=== PATIENT | male | born 2000 | race Caucasian/White ===

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

== ENCOUNTER 2024-09-07 19:48 | Emergency (ER) | payer SELFPAY ==
[2024-09-07 19:50] VITALS: BP 123/70; PULSE 94; RESP 16; TEMP 36.2; O2SAT 99; BMI 19.4
--- NOTE | 2024-09-07 20:39 | EDS_ITS ---
HPI <MIRIAM Galindo - Last Filed: 09/07/24 20:49> History of Present Illness Chief Complaint: Bite Narrative Narrative: Patient presenting today with concerns for a tick bite. He was in the shower yesterday when he noticed a tick on his left medial thigh. He is not sure how long the tick was there but thinks likely it was more than 24 hours. The ticks head was embedded in his skin but did not appear engorged. He was able to pull it out. He has no other acute complaints, he is healthy otherwise. PFSH <MIRIAM Galindo - Last Filed: 09/07/24 20:49> [facility] Home Medications ?Medication ?Instructions ?Recorded ?Last Taken ?Type NK 11/05/19 Unknown History Allergy/AdvReac Type Severity Reaction Status Date / Time No Known Allergies Allergy Verified 09/07/24 19:50 Social History Smoking Status: Never smoker ROS <MIRIAM Galindo - Last Filed: 09/07/24 20:49> ROS ED Constitutional Constitutional ED: Denies chills or fever(s) Cardiovascular Cardiovascular: Denies chest pain Respiratory/Chest Respiratory/Chest: Denies cough or dyspnea Gastrointestinal Gastrointestinal: Denies abdominal pain, nausea or vomiting Musculoskeletal Musculoskeletal: Denies arthralgias or myalgias Integumentary Reports other Details: Tick bite left medial thigh Neurologic Neurologic: Denies weakness EXAM <MIRIAM Galindo Last Filed: 09/07/24 20:49> Physical Exam Const Vital Signs: 09/07/24 19:50 09/07/24 21:04 Temperature 97.2 F L 97.9 F Temperature Source Temporal Pulse Rate 94 96 Respiratory Rate 16 18 Blood Pressure 123/70 H 124/85 H Blood Pressure Mean 87 98 Pulse Ox 99 99 Oxygen Delivery Method Room Air Positive well nourished, well developed and no apparent distress General Appearance ED: well developed HEENT Reports normocephalic and head/scalp atraumatic Mouth ED: Yes moist mucous membranes normal Eyes PERRL and EOMs intact bilaterally Neck full ROM and supple Chest Wall inspection of chest normal Resp normal respiratory effort and clear to auscultation bilaterally Cardio regular rate and regular rhythm GI soft to palpation, non-tender, non-distended and no masses Back/Spine normal ROM and normal to inspection Extremity full ROM Extremity Narrative: Small area of erythema to the left medial thigh where the tick was, no surroundi ng warmth or erythema, no purulent discharge. Neuro oriented x3, CN's II-XII intact bilaterally, moves all extremities, no focal motor deficits and no sensory deficits noted Sensorium / Orientation: awake and alert Psych mental status grossly normal and thought process normal Skin no rashes or lesions noted Skin Narrative: Small bite shanna to the left medial thigh <Dr. Jose L Chan MD - Last Filed: 09/07/24 21:15> Physical Exam Const Vital Signs: 09/07/24 19:50 09/07/24 21:04 Temperature 97.2 F L 97.9 F Temperature Source Temporal Pulse Rate 94 96 Respiratory Rate 16 18 Blood Pressure 123/70 H 124/85 H Blood Pressure Mean 87 98 Pulse Ox 99 99 Oxygen Delivery Method Room Air MDM <MIRIAM Galindo - Last Filed: 09/07/24 20:49> [facility] MDM Narrative Medical decision making narrative: Patient presenting today due to a tick bite. He found a tick on his left medial thigh yesterday while in the shower. The tick was not engorged, he is unsure how long the tick was there. Patient will be treated with a one-time dose of doxycycline. Wound care instructions were discussed. Patient can follow-up with his PCP. He will be discharged home in stable condition. <Dr. Jos eL Chan MD - Last Filed: 09/07/24 21:15> [facility] Treatment and Re-Evaluation Comments:: I have personally performed a face to face assessment of the patient and have reviewed the WAYNE Note. I performed a substantive portion of the visit including all aspects of the following. My cuba findings include: History is found tick on right thigh in shower, unknown duration at least 24 hours. Pulled it off on his own along with a couple of hairs. No systemic symptoms. Exam is bite site without signs of infection, there is a small scab. Nontender. Medical Decison Making prophylactic doxycycline due to Lyme being present and takes in the area. Other additions or changes: [None] Discharge Plan Triage Chief Complaint: Bite ED Midlevel Provider: Nata Fleming ED Provider: Jose L Chan Dx/Rx/DC Orders Clinical Impression: Tick bite Instructions: ED Tick Bite, Antibiotic Treatment Prescriptions: No Action NK Primary Care Provider: Care Physician,No Primary Referrals: NOT,DEFINED [Non-Staff] - Activity Restrictions/Additional Instructions: Follow-up with your PCP, return for any other concerns Print Language: Cuban Disposition Disposition: Home, Self Care
[2024-09-07 21:04] VITALS: BP 124/85; PULSE 96; RESP 18; TEMP 36.6; O2SAT 99
[2024-09-07] MEDS: Doxycycline 100 MG CAPSULE 200 MG PO (21:18)
== END 2024-09-07 21:22 | disposition home or self-care (01) ==
PROVIDERS: Emergency Provider Emergency Medicine; Visit Provider Emergency Medicine
DX: S70.362A Insect bite (nonvenomous), left thigh, initial encounter (principal); W57.XXXA Bitten or stung by nonvenomous insect and other nonvenomous arthropods, initial encounter
CPT/HCPCS: 99282

== ENCOUNTER 2024-12-19 16:58 | Emergency (ER) | payer SELFPAY ==
[2024-12-19 16:59] VITALS: BP 104/71; PULSE 90; RESP 14; TEMP 36.1; O2SAT 100; BMI 19.0
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
--- NOTE | 2024-12-19 17:22 | RAD_ITS ---
PROCEDURE: CHEST PA AND LATERAL REASON FOR EXAM: Chest wall pain TECHNIQUE: Frontal and lateral views of the chest. COMPARISON: 12/21/2017 FINDINGS: The heart size is normal. The mediastinal contour is unremarkable. The lungs are clear. The bones are unremarkable. Median sternotomy wires. RAD/Chest PA and Lateral IMPRESSION: No radiographic evidence of acute cardiopulmonary disease Reading Location: [facility]
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
[2024-12-19 19:08] VITALS: BP 110/70; PULSE 82; RESP 14; TEMP 36.1; O2SAT 100
== END 2024-12-19 19:08 | disposition home or self-care (01) ==
PROVIDERS: Emergency Provider Emergency Medicine; Visit Provider Emergency Medicine
DX: S20.219A Contusion of unspecified front wall of thorax, initial encounter (principal); S80.01XA Contusion of right knee, initial encounter; S80.02XA Contusion of left knee, initial encounter; V43.52XA Car driver injured in collision with other type car in traffic accident, initial encounter; F17.290 Nicotine dependence, other tobacco product, uncomplicated
CPT/HCPCS: 71046; 99282